=== PATIENT | female | born 1950 | race Caucasian/White ===

== ENCOUNTER 2020-06-17 08:10 | Observation (INO) | payer MEDICARE, OTHER ==
--- NOTE | 2020-06-12 13:03 | Diagnostic Imaging Report ---
EXAMINATION: CHEST 2 VIEWS INDICATION: Pre-operative COMPARISON: None FINDINGS: LINES/TUBES:None LUNGS:Increased AP diameter of the chest. No focal consolidation or pulmonary edema. PLEURA:No pleural effusion or pneumothorax. MEDIASTINUM:The cardiomediastinal silhouette appears normal in size and shape. Atherosclerotic calcifications of the thoracic aorta. BONES/SOFT TISSUES:No acute osseous injury. Exaggerated kyphosis of the thoracic spine. Cervical spine fusion hardware. ABDOMEN:No free air under the diaphragm. Status post cholecystectomy. IMPRESSION: No focal pneumonia or pulmonary edema. Increased AP diameter of the chest and exaggerated kyphosis of the thoracic spine. Signed by: Nahun Guerrero MD on 06/12/2020 12:59 PM
[~2020-06-17] VITALS: Ht 162.6 cm; Wt 79.8 kg
[~2020-06-17 08:10] MED LIST: DILTIAZEM HCL30 MG PO; EFFEXOR XR 3737.5 MG PO; ROPIVACAINE 246.25 MG, EPINEPHRINE HCL 1:1000 1ML 0.5 MG, CLONIDINE HCL 0.08 MG, KETORO... INJ ONE; TRAZODONE HCL50 MG PO; TRELEGY ELLIPT1 EACH INH
[2020-06-17] MEDS ORDERED: CEFAZOLIN SOD 1 GM/NS 50ML 100 ML IV ONE (08:25)
[2020-06-17] MEDS ORDERED: DEXAMETHASONE SOD PHOS 10 MG/1 ML VIAL ONE (08:39)
[2020-06-17] MEDS ORDERED: CELECOXIB 200 MG CAP ONE (08:39)
[2020-06-17] MEDS ORDERED: GABAPENTIN 300 MG CAP ONE (08:39)
[2020-06-17] MEDS ORDERED: VANCOMYCIN HCL 1,000 MG ONE (09:31)
[2020-06-17] MEDS ORDERED: SODIUM CHLORIDE 0.9% 500ML 500 ML ONE (09:31)
[2020-06-17] MEDS ORDERED: TRANEXAMIC ACID 1,000 MG/10 ML ML ONE (09:31)
[2020-06-17] MEDS ORDERED: HYDROCODONE/APAP 5MG-325MG TAB PO PRN (11:45)
[2020-06-17] MEDS ORDERED: ONDANSETRON HCL INJ 2MG/ML 2ML 2 MG/ML VIAL IV PRN (11:45)
[2020-06-17] MEDS: SODIUM CHLORIDE 0.9% 1000ML 1,000 ML IV SCH ×2 (11:45→21:45)
[2020-06-17] MEDS ORDERED: DIPHENHYDRAMINE HCL INJ 50 MG/ML VIAL IV PRN (11:45)
[2020-06-17] MEDS ORDERED: DOCUSATE SODIUM 100 MG CAP PO PRN (11:45)
[2020-06-17] MEDS ORDERED: ACETAMINOPHEN 650 MG SUPP PR PRN (11:45)
--- NOTE | 2020-06-17 12:10 | Diagnostic Imaging Report ---
Exam: KNEE LEFT 1-2 VIEWS History: Post-op Comparison: None. Findings: Status post total knee arthroplasty with appropriate alignment of femoral and tibial prostheses. No evidence of acute hardware failure. Associated postsurgical changes including joint effusion and intra-articular air. No fractures or acute osseous abnormalities. No joint malalignment. Anterior superficial skin megan. Subtle vascular calcifications. Impression: 1. Status post total knee arthroplasty without evidence of acute hardware complication. Associated postsurgical changes including joint effusion. Signed by: Dr. Elvis Islas M.D. on 06/17/2020 12:06 PM
[2020-06-17] MEDS ORDERED: FENTANYL CITRATE/PF 100MCG/2 ML INJ ONE ×2 (12:17→13:58)
--- NOTE | 2020-06-17 12:22 | Operative Report ---
DATE OF PROCEDURE: 06/17/2020 SURGEON: Gallo Lopez MD OPTOMETRIC TECHNOLOGIST: Jose Ferreira, certified PA. PREOPERATIVE DIAGNOSIS: Osteoarthritis, left knee. POSTOPERATIVE DIAGNOSIS: Osteoarthritis, left knee. PROCEDURE: Left total knee arthroplasty. INDICATIONS: The patient is a 69-year-old lady, who has end-stage arthritis of her left knee. She has failed conservative management and would like to proceed with a left total knee replacement. The risks and benefits of the procedure have been discussed at length. The hospital stay, implants, and recovery have been explained. All of her questions have been answered. She states she understands and wishes to proceed. PROCEDURE IN DETAIL: The patient was brought to the operating room and placed under general anesthetic. She received prophylactic antibiotics, tranexamic acid, and a regional block in the holding area. She had an alleged allergy to penicillin. She was given a test dose of Ancef without any problems. Her left lower extremity was prepped and draped in a sterile manner. A preoperative time-out was performed. The extremity was exsanguinated and a proximal tourniquet was inflated to 300 mmHg. An anterior incision with a medial parapatellar arthrotomy was performed. A limited subcutaneous dissection was performed to diminish the potential for space. Soft tissue releases were performed to bring the knee up into flexion with the patella everted. Meniscal remnants, marginal osteophytes, and the cruciate ligaments were removed. A Wilton/Biomet persona medial congruent knee system was used throughout the case. An extramedullary cutting guide was used to resect the proximal tibia. The tibial cut was referenced off the medial compartment. The tibial base plate was sized at an F implant. The central fin punch was drilled then impacted. Attention was directed towards the distal femur. An intramedullary cutting guide was used to resect the distal femur in 5 degrees of valgus and rotation referencing off a combination of landmarks including Whitesides line, the epicondylar axis, and the posterior condyles. The femoral component was a size 9. The anterior and posterior cuts were made. A trial reduction was then performed. A 10 mm medial congruent tibial insert provided appropriate soft tissue balancing in both full extension and 90 degrees of flexion. The patella was then resurfaced with a 32 mm patellar button. The thickness was checked before and after, and was right around 20 mm. Patellar tracking was noted to be concentric. The trial implants were then all removed. A 100 mL premixed pericapsular CHAMP injection was placed into the surrounding soft tissue. The knee was thoroughly irrigated with a shower tip pulsatile lavage. The components were then cemented into place using a single mix of high viscosity Biomet cement, preloaded with antibiotics. Care was taken to remove extravasated cement. The wound was further irrigated while the cement cured. The arthrotomy was then closed with interrupted #1 Ethibond after sprinkling 500 mg of vancomycin powder into the deep wound. The knee was put through flexion and extension to ensure a secure closure of the arthrotomy. The skin was carefully closed with subcuticular Vicryl and megan. A sterile Aquacel bandage was applied. The patient was extubated and transported to the recovery room in stable condition. Blood loss was minimal. All needle and sponge counts were correct. Gallo Lopez MD DR/JACINTA /[id number]
[2020-06-17] MEDS ORDERED: ACETAMINOPHEN 1000 MG/100 ML 100 ML IV ONE (12:48)
[2020-06-17] MEDS ORDERED: LIDOCAINE 2%/ EPINEPHRINE 20ML MDV ONE (12:54)
[2020-06-17] MEDS ORDERED: ROPIVACAINE 0.5% 5 MG/ML 30 ML SDV ONE (12:54)
--- OUTSIDE RECORDS SUMMARY | 2020-06-17 12:56 | XMS REPORT | Clinical Summary ---
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 Active traZODone (DESYREL) 100 Take 100 mg 0 MG tablet by mouth nightly. Active diltiazem CD (CARTIA XT) Take 120 mg 0 120 MG 24 hr capsule by mouth nightly. Active traZODone (DESYREL) 100 Take 100 mg 0 MG tablet by mouth nightly. Active venlafaxine (EFFEXOR) 75 Take 150 mg 0 MG tablet by mouth daily. Active diltiazem CD (CardIZEM Take 240 mg 0 CD) 240 MG 24 hr capsule by mouth daily. Active irbesartan (AVAPRO) 150 Take 150 mg 0 MG tablet by mouth nightly. Active Problems Problem Noted Date Sepsis secondary to UTI 08/13/2018 Immunizations Name Administration Dates Next Due FLUCELVAX QUAD PF 08/17/2018 Social History Date Tobacco Use Types Packs/Day Years Used Current Every Day Smoker Cigarettes 1 Smokeless Tobacco: Never Used Drinks/Week oz/Week Comments Alcohol Use No Alcohol Habits Answer Date Recorded How often do you have a drink containing alcohol? Never 08/13/2018 How many drinks containing alcohol do you have on Not aske d 08/13/2018 a typical day when you are drinking? How often do you have six or more drinks on one Not asked 08/13/2018 occasion? Sex Assigned at Date Recorded Not on file Industry Job Start Date Occupation Not on file Not on file Not on file Travel End Travel History Travel Start No recent travel history available. Last Filed Vital Signs Not on file Plan of Treatment Health Maintenance Due Date Last Done Comments BREAST CANCER SCREENING 1998 COLONOSCOPY SCREENING 1998 SHINGLES VACCINES (#1) 1998 65+ PNEUMOCOCCAL VACCINE 2013 (1 of 2 - PCV13) INFLUENZA VACCINE 07/03/2020 08/17/2018 Results Not on fileafter 06/17/2019 Insurance Type Payer Benefit Subscriber ID Effective Phone Address Plan / Dates Group HMO CIGNA [employer] CIGNA xxxxxxxx 2016-P [place]I resent NG HMO MCR ADV HMO C[employer] CIGNA xxxxxxxx 2017-P [employer]ALTH[place] resent NG HMO MCR ADV Advance Directives For more information, please contact: [phone] Patient Decommissioning Well Site Manager Explanation Type Date Recorded Advance Directives, 09/21/2017 9:30 AM Living Will and Medical Power of Shop Service Technician Advance Directives, Living Will and Medical Power of Shop Service Technician
--- OUTSIDE RECORDS SUMMARY | 2020-06-17 12:56 | XMS REPORT | Continuity of Care Document ---
Author Author [facility] Organization [facility] Address Unknown Phone Unavailable Care Team Providers Care Manager Care Management Name Role Phone FOUND, NOT PCP PCP Unavailable Allergies, Adverse Reactions, Alerts Allergen Type Severity Reaction Last Updated Verified Status Penicillin Allergy Unkno wn October 02, 2011 No Active Codeine Allergy Unknown October 02, 2011 No Active Medications Medication Status Dose Units Route Sig Qty Days Start Date End Date Instructions Nitrofurantoin Macrocrystals (Macrobid) 100 Mg CAP Active 100 MG PO Twice A Day October 02, 2011 1:16pm Phenazopyridine Hcl (Pyridium) 200 Mg TABLET Active 200 MG PO Three Times A Day October 02, 2011 1:16pm Take 1 tablet (200 mg) by mouth 3 times daily. Potassium Chloride (K-Tabs) 10 Meq TABCR Active 10 MEQ PO Twice A Day October 02, 2011 1:16pm Take 1 tablet by mouth twice daily. Problems No problem information available. Procedures Procedure Date Performed Status X-ray of knee, three views May [id number] completed Relevant Diagnostic Tests and/or Laboratory Data Diagnostic Imaging Reports Report Dictated Date/Time Dictated By Status Knee X-Ray May 23, 2020 3:16pm OPAL WEBB MD completed Left knee 3 views 05/23/2020 at 2:35 PM. HISTORY: 69-year-old female. Left knee pain and swelling. COMPARISON: No comparison exam is available. FINDINGS: There is no fracture or dislocation. There are moderate degenerative changes with joint space narrowing and marginal osteophytes. On the lateral view there is a very large joint effusion in the suprapatellar region. It measures 7.2 cm craniocaudal by 3.0 cm AP. There is a 1.7 cm ossific density posterior to the distal left femur. Exact etiology is undetermined. It may be a very large fabella but a loose body cannot be excluded. There is a 0.3 cm ossific density anteriorly near Hoffa's fat pad. This may represent a loose body. There is diffuse atherosclerosis. IMPRESSION: 1. No fracture. 2. Moderate degenerative changes. 3. Very large joint effusion. 4. Large loose body versus fabella poste riorly. 5. Possible loose body anteriorly. 6. Recommend further evaluation as clini bobby warranted. Dictated By: OPAL WEBB MD Date Dictated: 05/23/201515 Signed by: OPAL WEBB MD Date Signed: 05/23/201518 Health Concerns Health Concerns may be documented in an alternate section. Advance Directives Advance Directive Response Recorded Date/Time Does the Patient have an Advance Directive? No May 23, 2020 2:30pm Chief Complaint and Reason for Visit Chief Complaint Extremity Pain/Swell ing NonTra Reason for Visit [id number] Encounters Encounter Location(s) Ar rival/Admit Date Discharge/Depart Date Provider(s) Departed Emergency Room [facility] May 23, 2020 2:23pm May 23, 2020 3:57pm NOELLE SANTILLAN MD Assessments No Assessments Information Available Functional Status No Functional Status information available Goals Goals may be documented in an alternate section. Immunizations No Immunization Information Available Mental Status No Mental Status Information Available Medical Equipment No Medical Equipment Information available Insurance Providers Guarantor Andrés Chacon Address [address] [place] [id number] Contact Info. Home Phone: Payer Policy Id Coverage Id Subscriber's Name Subscriber Id Effective Date Expiration Date Medicare [id number] Andrés Chacon [id number] Plan of Treatment Please make an appointment with your instrument repair specialist at home. 1. The examination and treatment that you have received has been on an emergency basis only and is not intended as an effort to provide complete medical care. It is impossible to recognize and treat all elements of an illness or injury in a single ER visit. 2. Thank you for allowing us to provide emergent medical care to you or your family member. We consider it a privilege to have served you during your illness or injury. 3. Please call and make appointment with the orthopedic doctor listed on this paperwork, or the orthopedic doctor of your choice, by calling on the next business day and making an appointment. 4. Please wear splint until seen and released by orthopedic doctor. 5. Please keep affected part of body elevated and use ice packs as tolerated to help reduce swelling and control pain. 6. Do not use affected limb. No weight bearing with affected limb until cleared by orthopedic doctor. 7. No driving, no Physical Education (PE), and no sports until cleared by orthopedic doctor. 8. If you have received a prescription, please fill it TODAY and follow the instructions carefully. 9. Return to the ER for worsening symptoms. Future Tests Future scheduled test information is unavailable Pending Tests Pending diagnostic test information is unavailable Future Visits Future appointment information is unavailable Referrals to Other Providers Reason for Referral Referral Start Date Provider Provider Conta ct Information Provider Address FOUND, PCP NOT Future Procedures Future procedure information is unavailable Future Medications Future medication information is unavailable Patient Instructions Patellofemoral Pain (DC) Swollen Joints (DC) Social History Observation Status Observation Response Aaron e of Response Hx Tobacco Use Yes Augus t 2019 2:53pm Assigned Sex Female Vital Signs Vital Reading Result Ref erence Range Collection Date/Time Body Temperature 98.8 [degF] (97.6 - 99.5) May 23, 2020 2:30pm Heart Rate 103 /min (60 - 100) May 23, 2020 2:30pm Respiratory rate 20 /min (12 - 24) May 23, 2020 2:30pm BP Systolic 132 mm[Hg] ( 100 - 140) May 23, 2020 2:30pm BP Diastolic 79 mm[Hg] ( 60 - 90) May 23, 2020 2:30pm Weight 179 [lb_av] May 23, 2020 2:30pm BMI (Body Mass Index) 30.7 kg/m2 May 23, 2020 2:30pm
--- OUTSIDE RECORDS SUMMARY | 2020-06-17 12:56 | XMS REPORT | Continuity of Care Document ---
Author Author [facility] t Organization [facility] Address [address] [place] [address] Phone Unavailable Care Team Providers Care Lawn Care Specialist Name Role Phone FOUND, NOT PCP PCP Unavailable ESTELLA MCLEAN Attphys Unavailable TEZ RICHARDS Admphys Unavailable Advance Directives Directive Decision Effective Date Termination Date Comments Sour ce Yes N/A [facility] Problems Condition Name Condition Details Condition Category Status Onset Date Resolution Date Last Treatment Date Treating Clinician Comments Source Sepsis secondary to UTI Sepsis secondary to UTI Disease Active 2018-08-13 00:00:[address] [facility] [address] Problem Condition [facility] Allergies, Adverse Reactions, Alerts Allergy Name Allergy Type Status Severity Reaction(s) Onset Date Inacti ve Date Treating Clinician Comments Source Codeine Propensity to adverse reactions to drug Active 2018-08-13 00:00:00 Haresh Peterson Penicillin G Propensity to adverse reactions to drug Active 2018-08-13 00:00:00 Haresh Methodis t Penicillins Propensity to adverse reactions to drug Active Rash 2017-09-21 00:00:00 Haresh Methodis t Penicillin Allergy to substance Active 2011-10-02 00:00:00 [facility] Codeine Allergy to substance Active 2011-10-02 00:00:00 [facility] Social History Social Habit Start Date Stop Date Quantity Comments Source History of tobacco use Cigarette Smoker Haresh Peterson Sex Assigned At [place] rogerchema Peterson Cigarettes smoked current (pack per day) - Reported 00:00:00 2018-08-28 00:00:00 Haresh Peterson Alcohol intake 2018-08-28 00:00:00 2018-08-28 00:00:00 Current non-drinker of alcohol (finding) Haresh Masist History SDOH Alcohol Frequency 2018-08-13 00:00:00 2018-08-13 00:00:0 0 1 Haresh Masist History SDOH Alcohol Std Drinks 2018-08-13 00:00:00 2018-08-13 00:00: 00 Haresh Masist History SDOH Alcohol Binge 2018-08-13 00:00:00 2018-08-13 00:00:00 Haresh Peterson Smoking Status Start Date Stop Date Source Unknown if ever smoked [facility] Current every day smoker 2018-08-28 00:00:00 [place] Peterson Medications Ordered Medication Name Filled Medication Name Start Date Stop Da te Current Medication? Ordering Clinician Indication Dosage Frequency Signature (SIG) Comments Components Source venlafaxine (EFFEXOR) 25 MG tablet 2018-08-28 12:34:15 Yes QD Take by mouth daily. Haresh Peterson traZODone (DESYREL) 100 MG tablet 2018-08-28 12:34:15 Yes 100mg QD Take 100 mg by mouth nightly. Haresh treviño diltiazem CD (CARTIA XT) 120 MG 24 hr capsule 2018-08-28 12:34:1 5 Yes 120mg QD Take 120 mg by mouth nightly. Haresh Peterson traZODone (DESYREL) 100 MG tablet 2018-08-23 16:12:52 Yes 100mg QD Take 100 mg by mouth nightly. Haresh treviño venlafaxine (EFFEXOR) 75 MG tablet 2018-08-23 16:12:52 Yes 150mg QD Take 150 mg by mouth daily. Haresh Garcia t diltiazem CD (CardIZEM CD) 240 MG 24 hr capsule 2018-08-23 16:12 :52 Yes 240mg QD Take 240 mg by mouth daily. Haresh Peterson irbesartan (AVAPRO) 150 MG tablet 2018-08-23 16:12:52 Yes 150mg QD Take 150 mg by mouth nightly. Haresh treviño Nitrofurantoin Macrocrystals (Macrobid) 100 Mg CAP 2011-09-04 1 13:16:00 No 100mg [facility] Phenazopyridine Hcl (Pyridium) 200 Mg TABLET 2011-10-02 13:16:00 No 200mg [facility] Potassium Chloride (K-Tabs) 10 Meq TABCR 2011-10-02 13:16:00 N o 10 [facility] Immunizations Ordered Immunization Name Filled Immunization Name Date Status Comments Source FLUCELVAX QUAD PF 2018-08-17 00:00:00 Completed [facility] Vital Signs Vital Name Observation Time Observation Value Comments Source Body Temperature 2020-05-23 14:30:00 98.8 [degF] [facility] Heart Rate 2020-05-23 14:30:00 103 /min [facility] Respiratory rate 2020-05-23 14:30:00 20 /min [facility] BP Systolic 2020-05-23 14:30:00 132 mm[Hg] [facility] BP Diastolic 2020-05-23 14:30:00 79 mm[Hg] [facility] Weight 2020-05-23 14:30:00 179 [lb_av] [facility] BMI (Body Mass Index) 2020-05-23 14:30:00 30.7 kg/m2 [facility] Procedures Procedure Date / Time Performed Performing Clinician [facility] e X-ray of knee, three views 2020-05[facility]23 [facility] Planned Activity Planned Date Details Comments Source Future Scheduled Test 2020-07-03 00:00:00 INFLUENZA VACCINE [code = INFLUENZA VACCINE] [facility] Scheduled Test 2013 00:00:00 65+ PNEUMOCOCCAL V ACCINE (1 of 2 - PCV13) [code = 65+ PNEUMOCOCCAL VACCINE (1 of 2 - PCV13)] [facility] Future Scheduled Test 1998 00:00:00 BREAST CANCER SCRE ENING [code = BREAST CANCER SCREENING] [facility] Future Scheduled Test 1998 00:00:00 COLONOSCOPY SCREEN ING [code = COLONOSCOPY SCREENING] [facility] Scheduled Test 1998 00:00:00 SHINGLES VACCINES (#1) [code = SHINGLES VACCINES (#1)] [facility] Goal Patient referral [code = 7306403 ] [facility] Instructions [facility] (DC[facility] Swollen Joints (DC) [facility] Encounters Start Date/Time End Date/Time Encounter Type Admission Type [facility] Care Department Encounter ID Source 2020-05-23 14:23:00 2020-05-23 15:57:00 Departed Emergency Room [facility] Chapa [id number] [facility] Results Test Description Test Time Test Comments Results Result Comments Source KNEE LEFT 1-2 VIEWS 2020-06-17 12:04:00 [place] [address] Patient Name: ANDRÉS OAKLEY MR #: [id number] : 1950 Age/Sex: 69/F Req #: [id number] Adm Physician: Ordered by: ESTELLA MCLEAN MD Report #: [id number] Location: OR Room/Bed: Procedure: [id number] DX/KNEE LEFT 1-2 VIEWS Exam Date: 06/17/20 Exam Time: 1149 REPORT STATUS: Signed Exam: KNEE LEFT 1-2 VIEWS History: Post-op Comparison: None. Findings: Status post total knee arthroplasty with appropriate alignment of femoral and tibial prostheses. No evidence of acute hardware failure. Associated postsurgical changes includ ing joint effusion and intra-articular air. No fractures or acute osseous abnormalities. No joint malalignment. Anterior superficial skin megan. Subtle vascular calcifications. Impression: 1. Status post total knee arthroplasty without evidence of acute hardware complication. Associated postsurgical changes including joint effusion. Signed by: Dr. Jolene Islas M.D. on 06/17/2020 12:06 PM Dictated By: JOLENE ISLAS MD 1206 Transcribed By: NICCI on 06/17/20 1206 COPY TO: ESTELLA MCLEAN MD CHEST 2 VIEWS 2020-06-12 12:53:00 [place] [address] Patient Name: ANDRÉS OAKLEY MR #: [id number] : 1950 Age/Sex: 69/F Req #: [id number] Adm Physician: Ordered by: ESTELLA MCLEAN MD Report #: [id number] Location: OR Room/Bed: Procedure: [id number] DX/CHEST 2 VIEWS Exam Date: 06/12/20 Exam Time: 1240 REPORT STATUS: Signed EXAMINATION: CHEST 2 VIEWS INDICATION: Pre-operative COMPARISON: None FINDINGS: LINES/TUBES:None LUNGS:Increased AP diameter of the chest. No focal consolidation or pulmonary edema. PLEURA:No pleural effusion or pneumothorax. MEDIASTINUM:The cardiomediastinal silhouette appears normal in size and shape. Atherosclerotic calcifications of the thoracic aorta. BONES/SOFT TISSUES:No acute osseous injury. Exaggerated kyphosis of the thoracic spine. Cervical spine fusion hardware. ABDOMEN:No free air under the diaphragm. Status post cholecystectomy. IMPRESSION: No focal pneumonia or pulmonary edema. Increased AP diameter of the chest and exaggerated kyphosis of the thoracic spine. Signed by: Bong Alejandra MD on 06/12/2020 12:59 PM Dictated By: BONG ALEJANDRA MD 58 Transcribed By: NICCI on 06/12/202 COPY TO: ESTELLA MCLEAN MD
[2020-06-17] MEDS ORDERED: MIDAZOLAM HCL 2 MG/2 ML VIAL ONE (13:58)
--- NOTE | 2020-06-17 15:33 | NUR ---
DR WYMAN OFFICE PREARRANGED FOLLOWING DISCHARGE PLAN OF: HOME [address] [facility] WITH [facility] CONFIRMED WITH DAVE [phone] DME REFUSED STATES HAS WALKER AND BED SIDE COMMODE STATES WILL ONLY NEED THE CPM PROVIDED BY THERAPY SUPPLY DEAVER ALFREDO [phone] [employer]HERTY SIGNED AND ON CHART COPY LEFT WITH PATIENT GAVE CARD FOR QUESTIONS AND OR CONCERNS.
[2020-06-17 15:47] VITALS: BP 133/77
[2020-06-17] MEDS: CELECOXIB 100 MG CAP PO SCH (17:18)
[2020-06-17] MEDS: CEFAZOLIN SOD 1 GM/NS 50ML 50 ML IV SCH (17:18)
[2020-06-17] MEDS: KETOROLAC TROMETHAMINE 30 MG/ML VIAL IV PRN (17:19)
[2020-06-17] MEDS: HYDROCODONE/APAP 7.5MG-325MG 1 EA TAB PO PRN ×2 (17:19→21:38)
[2020-06-17] MEDS ORDERED: SEVOFLURANE INHAL SOLN 250 ML PEN BTL ONE (17:25)
[2020-06-17] MEDS ORDERED: ONDANSETRON HCL INJ 2MG/ML 2ML 2 MG/ML VIAL ONE (17:25)
[2020-06-17] MEDS ORDERED: LIDOCAINE HCL 2% LOCAL INJ 5 ML SDV VIAL INJ ONE (17:25)
[2020-06-17] MEDS ORDERED: PROPOFOL IV EMULSION 10 MG/ML 20 ML VIAL ONE (17:25)
[2020-06-17] MEDS ORDERED: DEXAMETHASONE SOD PHOS INJ 4 MG/ML VIAL ONE (17:25)
[2020-06-17] MEDS ORDERED: KETOROLAC TROMETHAMINE 30 MG/ML VIAL ONE (17:25)
--- NOTE | 2020-06-17 19:00 | NUR ---
RECEIVED BEDSIDE SHIFT REPORT FROM PREVIOUS NURSE. CALL LIGHT WITHIN REACH. PATIENT IN BED.
[2020-06-17 20:00] VITALS: BP 114/72
[2020-06-17] MEDS ORDERED: ZOLPIDEM TARTRATE 5 MG TAB PO PRN (21:00)
--- NOTE | 2020-06-17 23:30 | NUR ---
GAVE REPORT TO LATISHA. PATIENT IN BED. CALL LIGHT WITHIN REACH. PATIENT IN NO PAIN OR DISTRESS. HOURLY ROUNDING PERFORMED
[2020-06-18] VITALS: BP 125/77
[2020-06-18] MEDS: KETOROLAC TROMETHAMINE 30 MG/ML VIAL IV PRN (01:06)
[2020-06-18] MEDS: CEFAZOLIN SOD 1 GM/NS 50ML 50 ML IV SCH ×2 (02:00→11:04)
[2020-06-18 04:00] VITALS: BP 150/76
[2020-06-18 05:13] LABS: HEMATOCRIT 35.9 % (34.2-44.1); HEMOGLOBIN 11.9 g/dL (12.0-16.0)
--- NOTE | 2020-06-18 06:56 | Consultation ---
DATE OF CONSULTATION: REASON FOR CONSULTATION: Postop medical management. HISTORY OF PRESENT ILLNESS: The patient is a 69-year-old, status post total left knee arthroplasty. She is doing very well postoperatively with minimal pain of the left knee. REVIEW OF SYSTEMS: Denies any fever, chills, nausea, vomiting, headache, shortness of breath, or dizziness. PAST MEDICAL HISTORY: Significant for osteoarthritis, depression, hypertension. MEDICATIONS: See MAR. ALLERGIES: CODEINE AND PENICILLIN. 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 She does smoke 1-2 packs per day, but denies alcohol use. FAMILY HISTORY: Noncontributory. PHYSICAL EXAMINATION: VITAL SIGNS: Temperature 98.6, pulse 103, blood pressure 125/67, saturations 95% on room air. GENERAL: No apparent distress, lying in bed. NECK: Supple. No lymphadenopathy. CARDIOVASCULAR: Regular rate and rhythm. LUNGS: Clear to auscultation bilaterally. ABDOMEN: Good bowel sounds. Soft, nontender. EXTREMITIES: No clubbing or cyanosis. Left knee shows no seepage. NEUROLOGIC: Nonfocal. Moves all extremities x4. ASSESSMENT/PLAN: 1. Left knee pain. Continue with postoperative care, Physical therapy and pain control. 2. Anemia. Check a CBC. 3. Depression. We will restart her medications at discharge. 4. Hypertension. We will continue to monitor and restart her medicines at discharge. 5. Tobacco abuse. The patient was encouraged to quit smoking. Please see hospital chart for full details. MD KATIE Espinal/JACINTA /[id number]
[2020-06-18 07:31] VITALS: BP 141/82
[2020-06-18] MEDS: SODIUM CHLORIDE 0.9% 1000ML 1,000 ML IV SCH (07:45)
[2020-06-18] MEDS ORDERED: XARELTO10 MG PO (09:02)
[2020-06-18] MEDS: HYDROCODONE/APAP 7.5MG-325MG 1 EA TAB PO PRN (09:51)
[2020-06-18] MEDS: CELECOXIB 100 MG CAP PO SCH (11:03)
[2020-06-18 11:12] VITALS: BP 141/82
[2020-06-18 11:29] VITALS: BP 141/82
[2020-06-18] MEDS ORDERED: ACETAMINOPHEN 1000 MG/100 ML IV PRN (11:45)
[2020-06-18] MEDS ORDERED: RIVAROXABAN 10 MG TABLET PO SCH (17:00)
== END 2020-06-18 12:55 | disposition home health service (06) ==
LOC: OR 08:10 → PACU V 11:35 → MED/SURG 14:55
PROVIDERS: ADMIT Specialist; ATTEND Specialist
DX: M17.12 Unilateral primary osteoarthritis, left knee (principal); I10 Essential (primary) hypertension; F32.9 Major depressive disorder, single episode, unspecified; Z88.5 Allergy status to narcotic agent; Z88.0 Allergy status to penicillin; J44.9 Chronic obstructive pulmonary disease, unspecified; D64.9 Anemia, unspecified; Z72.0 Tobacco use; Z11.59 Encounter for screening for other viral diseases
CPT/HCPCS: 27447; 36415; 71046; 73560; 85014; 85018; 86850; 86900; 86920; 93005; 97116; 97161; 97530 ×2; C1713; G0378 ×2; J0131; J0171; J0690 ×2; J1100 ×2; J1885 ×2; J2001; J2405; J2704; J2795; J3010; J3370; J7040; U0002; J2250